=== PATIENT | male | born 1960 | race Caucasian/White ===

== ENCOUNTER 2018-05-18 15:29 | Emergency (ER) | payer OTHER ==
[2018-05-18 15:48] VITALS: RESP 16
--- NOTE | 2018-05-18 16:39 | RAD ---
PROCEDURE: Left Hand Radiographs. HISTORY: trauma COMPARISON: None. FINDINGS: BONES: Normal. No fracture. JOINTS: Normal. No osteoarthritic changes. SOFT TISSUES: Normal. OTHER FINDINGS: None. IMPRESSION: Normal left hand radiographs.
--- NOTE | 2018-05-18 16:44 | ED PDOC ---
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 He denies any numbness, tingling or other bodily injuries. Past Medical History Reviewed: Historical Data, Nursing Documentation, Vital Signs Vital Signs: Last Vital Signs Temp 98.7 F 05/18/18 15:48 Pulse 92 H 05/18/18 15:48 Resp 16 05/18/18 15:48 BP 155/80 H 05/18/18 15:48 Pulse Ox 99 05/18/18 15:48 - Medical History PMH: No Chronic Diseases - Surgical History Surgical History: No Surg Hx - Family History Family History: States: Unknown Family Hx - Home Medications Home Medications: Ambulatory Orders Medication Instructions Recorded Meclizine [Meclizine*] 25 mg PO Q6 #30 tab 07/26/16 Naproxen [Naprosyn] 500 mg PO BID PRN #10 tab 05/18/18 - Allergies Allergies/Adverse Reactions: Allergies Allergy/AdvReac Type Severity Reaction Status Date / Time No Known Allergies Allergy Verified 05/18/18 15:48 Review of Systems ROS Statement: Except As Marked, All Systems Reviewed And Found Negative Musculoskeletal: Positive for: Hand Pain (left-sided) Neurological: Negative for: Numbness (or tingling) Physical Exam - Reviewed Nursing Documentation Reviewed: Yes Vital Signs Reviewed: Yes - Physical Exam Pulses-Radial (L): 2+ Rectal: Positive for: Tenderness (mildly to left dorsal 2nd MCP) Extremity: Positive for: Normal ROM (actively to left wrist and digits), Capillary Refill (<2 seconds to left hand) - ECG O2 Sat by Pulse Oximetry: 99 (RA) Pulse Ox Interpretation: Normal - Progress ED Course And Treament: L hand wrapped in meghann wrap. Medical Decision Making Medical Decision Making: Initial Plan: * Xray hand (left) --------- Time: 1637 --Xray hand (left) FINDINGS: BONES: Normal. No fracture. JOINTS: Normal. No osteoarthritic changes. SOFT TISSUES: Normal. OTHER FINDINGS: None. IMPRESSION: Normal left hand radiographs. --------- Time: 1644 --Upon provider re-evaluation, patient is feeling better, medically stable, and requires no further treatment in the ED at this time. Patient will be discharged home with Rx for Naprosyn 500mg. Counseling was provided and all questions were answered regarding diagnosis and need for follow up with agriculture extension specialist. There is agreement to discharge plan. Return if symptoms persist or worsen. Clinical Impression: Hand contusion Scribe Attestation: Documented by Laisha Vizcarra, acting as a scribe for Ubaldo Caban PA-C. Provider Scribe Attestation: All medical record entries made by the Scribe were at my direction and personally dictated by me. I have reviewed the chart and agree that the record accurately reflects my personal performance of the history, physical exam, medical decision making, and the department course for this patient. I have also personally directed, reviewed, and agree with the discharge instructions and disposition. Disposition - Clinical Impression Clinical Impression: Hand contusion - Patient ED Disposition Is Patient to be Admitted: No Counseled Patient/Family Regarding: Studies Performed, Diagnosis, Need For Followup, Rx Given - Disposition Referrals: Reji Ku MD [Medical Doctor] - Disposition: Routine/Home Disposition Time: 16:44 Condition: STABLE Additional Instructions: PIYUSH ELMORE, thank you for letting us take care of you today. Your provider was Nga Frank MD and you were treated for WC: RT ARM PAIN. The emergency medical care you received today was directed at your acute symptoms. If you were prescribed any medication, please fill it and take as directed. It may take several days for your symptoms to resolve. Return to the Emergency Department if your symptoms worsen, do not improve, or if you have any other problems. Please contact your doctor or call one of the physicians/clinics you have been referred to that are listed on the Patient Visit Information form that is included in your discharge packet. Bring any paperwork you were given at discharge with you along with any medications you are taking to your follow up visit. Our treatment cannot replace ongoing medical care by a primary care provider outside of the emergency department. Thank you for allowing the [facility] team to be part of your care today. If you had an X-Ray or CT scan: A Radiologist will review the ED reading if any change in treatment is needed we will contact you. If you had a blood, urine, or wound culture: It will take several days for the results, if any change in treatment is needed we will contact you. If you had an STI test: It will take 48 hours for the results. Please call after 1 week if you have not heard back. Prescriptions: Naproxen [Naprosyn] 500 mg PO BID PRN #10 tab PRN Reason: Pain Instructions: Contusion (DC) Forms: [facility] [facility] ([place]), [facility] ED School/Work Excuse Print Language: [id number]
[2018-05-18 17:04] VITALS: BP 140/78; PULSE 88; TEMP 98
[2018-05-18 17:06] VITALS: O2SAT 99
== END 2018-05-18 17:04 | disposition home or self-care (01) ==
LOC: H.ER 15:29
DX: S60.222A Contusion of left hand, initial encounter (principal); W22.8XXA Striking against or struck by other objects, initial encounter; Y99.0 Civilian activity done for income or pay